=== PATIENT | male | born 1965 | race Caucasian/White ===

== ENCOUNTER 2020-01-30 23:59 | Inpatient (IN) | payer MEDICAID ==
[~2020-01-30] VITALS: Ht 170.2 cm; Wt 85.3 kg
[2020-01-31] VITALS (59 sets, daily range): BP systolic 76–144; BP diastolic 24–97
[2020-01-31 01:04] LABS: BASOPHILS % 0.6 % (0.0-2.0); EOSINOPHILS % 3.5 % (0.0-5.0); HEMATOCRIT. 40.2 % (42.0-52.0); HEMOGLOBIN. 13.7 g/dL (14.0-18.0); LYMPHOCYTES % 35.9 % (20.0-50.0); MEAN CORPUSCULAR HEMOGLOBIN 31.2 pg (28.0-32.0); MEAN CORPUSCULAR VOLUME 91.6 fL (80.0-94.0); MEAN PLATELET VOLUME 8.6 fl (7.4-10.4); MONOCYTES % 10.7 % (2.0-8.0); NEUTROPHILS % 49.3 % (40.0-76.0); PLATELET 175 x1000/uL (130-400); RED CELL DISTRIBUTION WIDTH 14.6 % (11.6-14.6)
[2020-01-31 01:05] LABS: CHLORIDE 107 mEq/L (98-107)
[2020-01-31] MEDS ORDERED: DOPAMINE 400MG/250ML PREMIX 250 ML IV ONE (02:45)
[2020-01-31] MEDS ORDERED: SODIUM CHLORIDE 0.9% 500 ML IV ONE (03:00)
[2020-01-31] MEDS ORDERED: ACETAMINOPHEN 325MG TABLET PO PRN (09:00)
[2020-01-31] MEDS ORDERED: HEPARIN SODIUM 1,000 UNIT/1ML VIAL IV ONE (10:00)
[2020-01-31] MEDS ORDERED: FENTANYL CITRATE/PF 50MCG/ML 2ML VIAL ONE (10:01)
[2020-01-31] MEDS ORDERED: LIDOCAINE HCL 1% 20ML VIAL (Pyxis) INJ ONE (10:02)
[2020-01-31] MEDS ORDERED: MIDAZOLAM HCL 2 MG/2 ML VIAL ONE (10:02)
[2020-01-31] MEDS ORDERED: IODIXANOL 320MG/ML 100 ML BOTTLE IV ONE (10:03)
[2020-01-31 10:20] LABS: LDL CHOLESTEROL 76 mg/dL (5-100)
[2020-01-31 10:21] LABS: HDL CHOLESTEROL 79 mg/dL (40-59)
[2020-01-31] MEDS ORDERED: ONDANSETRON HCL 4MG/2ML INJ ONE (10:33)
[2020-01-31] MEDS ORDERED: DIPHENHYDRAMINE 50MG/ML VIAL ONE (10:33)
[2020-01-31] MEDS ORDERED: VERAPAMIL HCL 2.5 MG/1 ML 2ML VIAL IV ONE (11:14)
[2020-01-31] MEDS ORDERED: SODIUM CHLORIDE 0.45% 750 ML IV ONE (12:15)
[2020-01-31] MEDS ORDERED: ATROPINE SULFATE 1MG/10ML SYR IV PRN (12:15)
[2020-01-31] MEDS: ASPIRIN 81MG TABLET PO SCH (13:15)
[2020-01-31] MEDS ORDERED: SODIUM CHLORIDE 0.9% 250 ML IV ONE (14:00)
[2020-01-31] MEDS: DOPAMINE 800MG PREMIX (DOUBLE) 250 ML IV PRN (15:44)
[2020-01-31] MEDS ORDERED: SODIUM CHLORIDE 0.45% 250 ML IV ONE (15:45)
[2020-01-31 16:10] LABS: BG BASE EXCESS -0.1 mmol/L (-2.0-2.0); BG CARBOXYHEMOGLOBIN 0.8 % (0.5-1.5); BG DEOXYHEMOGLOBIN 3.5 % (0.0-5.0); BG FRACTION INSPIRED OXYGEN 21; BG METHEMOGLOBIN 0.2 % (0.0-1.5); BG OXYGEN SATURATION 96.5 % (92.0-98.5); BG OXYHEMOGLOBIN 95.5 % (94.0-97.0); BG PCO2 37.8 mmHg (35.0-45.0); BG PH 7.421 (7.350-7.450); BG PO2 86.5 mmHg (75.0-100.0); BG SAMPLE SITE LEFT RADIAL; BG TOTAL HEMOGLOBIN 14.7 g/dL (12.0-18.0); BG VENT MODE ROOM AIR
[2020-01-31] MEDS: ONDANSETRON HCL 4MG/2ML INJ IV PRN (17:24)
[2020-01-31 18:03] LABS: CLARITY URINE CLEAR (CLEAR); COLOR URINE YELLOW (YELLOW); KETONES URINE NEGATIVE (NEGATIVE); LEUKOCYTE ESTERASE URINE NEGATIVE (NEGATIVE); NITRITE URINE NEGATIVE (NEGATIVE); OCCULT BLOOD URINE NEGATIVE (NEGATIVE); PROTEIN URINE NEGATIVE (NEGATIVE); SPECIFIC GRAVITY URINE 1.033 (1.005-1.030); UROBILINOGEN URINE 0.2 E.U./dL (0.2-1.0)
[2020-01-31 18:22] LABS: *AMPHETAMINES SCREEN URINE NEGATIVE (NEGATIVE); *BARBITURATES SCREEN URINE NEGATIVE (NEGATIVE); *BENZODIAZEPINES SCREEN URINE NEGATIVE (NEGATIVE); *COCAINE SCREEN URINE NEGATIVE (NEGATIVE); CANNABINOID URINE SCREEN NEGATIVE (NEGATIVE); METHADONE URINE SCREEN NEGATIVE (NEGATIVE); OPIATES URINE SCREEN NEGATIVE (NEGATIVE); PHENCYCLIDINE URINE SCREEN NEGATIVE (NEGATIVE)
[2020-02-01] VITALS (93 sets, daily range): BP systolic 75–153; BP diastolic 37–105
[2020-02-01 05:00] LABS: BASOPHILS % 0.3 % (0.0-2.0); EOSINOPHILS % 2.1 % (0.0-5.0); HEMOGLOBIN. 15.5 g/dL (14.0-18.0); LYMPHOCYTES % 21.3 % (20.0-50.0); MEAN CORPUSCULAR HEMOGLOBIN 30.9 pg (28.0-32.0); MEAN CORPUSCULAR VOLUME 91.5 fL (80.0-94.0); MEAN PLATELET VOLUME 8.9 fl (7.4-10.4); MONOCYTES % 8.8 % (2.0-8.0); NEUTROPHILS % 67.5 % (40.0-76.0); PLATELET 185 x1000/uL (130-400); RED BLOOD CELL COUNT 5.02 mill/uL (4.7-6.1); RED CELL DISTRIBUTION WIDTH 14.3 % (11.6-14.6)
[2020-02-01] MEDS: ONDANSETRON HCL 4MG/2ML INJ IV PRN (05:03)
[2020-02-01 05:07] LABS: CHLORIDE 106 mEq/L (98-107)
[2020-02-01] MEDS: OMEPRAZOLE 20MG CAPSULE EXTENDED RELEASE PO SCH (06:30)
[2020-02-01] MEDS: DOPAMINE 800MG PREMIX (DOUBLE) 250 ML IV PRN (07:42)
[2020-02-01] MEDS: ASPIRIN 81MG TABLET PO SCH (09:00)
[2020-02-01] MEDS ORDERED: SODIUM CHLORIDE 0.9% 1000ML BAG (SEPSIS BOLUS) IV ONE (13:45)
[2020-02-01] MEDS ORDERED: SODIUM CHLORIDE 0.9% 500 ML IV NR (14:00)
[2020-02-01] MEDS ORDERED: MIDAZOLAM HCL 2 MG/2 ML VIAL ONE ×2 (15:15→15:53)
[2020-02-01] MEDS ORDERED: FENTANYL CITRATE/PF 50MCG/ML 2ML VIAL ONE ×2 (15:15→15:53)
[2020-02-01] MEDS ORDERED: LIDOCAINE HCL 1% 20ML VIAL (Pyxis) INJ ONE (15:16)
[2020-02-01] MEDS ORDERED: GENTAMICIN/NS IRRIGATION 500 ML IR ONE (15:16)
[2020-02-01] MEDS ORDERED: CEFAZOLIN 1000MG PREMIX 100 ML IV ONE (15:16)
[2020-02-01] MEDS ORDERED: IOHEXOL-300 100 ML BOTTLE ONE (15:35)
[2020-02-01] MEDS ORDERED: CEFAZOLIN SODIUM 1000MG/VIAL IV SCH (22:00)
[2020-02-02] VITALS (38 sets, daily range): BP systolic 90–110; BP diastolic 53–71
[2020-02-02] MEDS: CEFAZOLIN 1000MG PREMIX 50 ML IV SCH ×2 (00:26→07:46)
[2020-02-02] MEDS: DOPAMINE 800MG PREMIX (DOUBLE) 250 ML IV PRN (03:38)
[2020-02-02 05:52] LABS: BASOPHILS % 0.3 % (0.0-2.0); EOSINOPHILS % 1.8 % (0.0-5.0); HEMATOCRIT. 42.9 % (42.0-52.0); HEMOGLOBIN. 14.6 g/dL (14.0-18.0); LYMPHOCYTES % 16.3 % (20.0-50.0); MEAN CORPUSCULAR HEMOGLOBIN 30.9 pg (28.0-32.0); MEAN CORPUSCULAR VOLUME 90.7 fL (80.0-94.0); MEAN PLATELET VOLUME 8.3 fl (7.4-10.4); MONOCYTES % 8.1 % (2.0-8.0); NEUTROPHILS % 73.5 % (40.0-76.0); PLATELET 143 x1000/uL (130-400); RED BLOOD CELL COUNT 4.73 mill/uL (4.7-6.1); RED CELL DISTRIBUTION WIDTH 14.3 % (11.6-14.6)
[2020-02-02 06:01] LABS: CHLORIDE 104 mEq/L (98-107)
[2020-02-02] MEDS: ASPIRIN 81MG TABLET PO SCH (08:18)
[2020-02-02] MEDS: OMEPRAZOLE 20MG CAPSULE EXTENDED RELEASE PO SCH (08:18)
[2020-02-02] MEDS ORDERED: TOPUD MT (11:48)
== END 2020-02-02 13:29 | disposition home or self-care (01) | DRG 171 ==
LOC: ER 23:59 → MICUNO 01-31 02:46 → ENRESERV 01-31 07:55 → CVICU 02-01 16:46
PROVIDERS: ADMIT Internal Medicine; ATTEND Internal Medicine
PROC: 4A023N7 Measurement of Cardiac Sampling and Pressure, Left Heart, Percutaneous Approach (ICD-10-PCS; principal; 2020-01-31)
PROC: B2111ZZ Fluoroscopy of Multiple Coronary Arteries using Low Osmolar Contrast (ICD-10-PCS; 2020-01-31)
PROC: 5A1223Z Performance of Cardiac Pacing, Continuous (ICD-10-PCS; 2020-01-31)
PROC: 02H63JZ Insertion of Pacemaker Lead into Right Atrium, Percutaneous Approach (ICD-10-PCS; 2020-02-01)
PROC: 02HK3JZ Insertion of Pacemaker Lead into Right Ventricle, Percutaneous Approach (ICD-10-PCS; 2020-02-01)
PROC: 0JH606Z Insertion of Pacemaker, Dual Chamber into Chest Subcutaneous Tissue and Fascia, Open Approach (ICD-10-PCS; 2020-02-01)
DX: I49.5 Sick sinus syndrome (principal); I25.110 Atherosclerotic heart disease of native coronary artery with unstable angina pectoris; Z20.828 Contact with and (suspected) exposure to other viral communicable diseases; Z87.11 Personal history of peptic ulcer disease; Z87.891 Personal history of nicotine dependence; Z79.899 Other long term (current) drug therapy; R57.0 Cardiogenic shock
CPT/HCPCS: 33208; 36415; 36600; 71045; 74018; 75820; 80048; 80053; 80061; 80305; 81003; 82375; 82805; 83605; 83880; 84145; 84443; 84484; 85025; 87426; 92953; 93005; 93306; 93458; 99291; C1769; C1785; C1887; C1893; C1894; C1898; J0690; J1200; J1265; J1644; J2250; J2405; J3010; J3490; Q9967

== ENCOUNTER 2020-02-03 10:08 | Emergency (ER) | payer MEDICAID ==
[~2020-02-03] VITALS: Ht 180.3 cm; Wt 80.0 kg
[~2020-02-03 10:08] MED LIST: TOPUD MT
[2020-02-03 11:01] LABS: BASOPHILS % 0.5 % (0.0-2.0); EOSINOPHILS % 2.9 % (0.0-5.0); HEMATOCRIT. 42.6 % (42.0-52.0); HEMOGLOBIN. 14.5 g/dL (14.0-18.0); LYMPHOCYTES % 14.4 % (20.0-50.0); MEAN CORPUSCULAR VOLUME 91.3 fL (80.0-94.0); MEAN PLATELET VOLUME 8.4 fl (7.4-10.4); MONOCYTES % 9.7 % (2.0-8.0); NEUTROPHILS % 72.5 % (40.0-76.0); PLATELET 124 x1000/uL (130-400); RED BLOOD CELL COUNT 4.67 mill/uL (4.7-6.1); RED CELL DISTRIBUTION WIDTH 14.7 % (11.6-14.6)
[2020-02-03 11:09] LABS: CHLORIDE 105 mEq/L (98-107)
[2020-02-03] MEDS ORDERED: MORPHINE SULFATE 2 MG/ML CPJ (NOT FOR IM USE) IV ONE (12:00)
[2020-02-03 13:20] VITALS: BP 93/58
== END 2020-02-03 13:22 | disposition home or self-care (01) ==
LOC: ER 11:26
DX: R06.02 Shortness of breath (principal); M54.9 Dorsalgia, unspecified; G89.29 Other chronic pain; Z95.0 Presence of cardiac pacemaker; Z98.890 Other specified postprocedural states
CPT/HCPCS: 36415; 71045; 80053; 83880; 85025; 93005; 99285

== ENCOUNTER 2024-09-20 12:42 | Emergency (ER) | payer MEDICAID, OTHER ==
[~2024-09-20] VITALS: Ht 172.7 cm; Wt 75.0 kg
[2024-09-20 12:47] VITALS: BP 120/80; PULSE 62; RESP 16; TEMP 36.9; O2SAT 99
== END 2024-09-20 13:49 | disposition left against medical advice (07) ==
LOC: ER 12:42
DX: Z53.21 Procedure and treatment not carried out due to patient leaving prior to being seen by health care provider (principal)